=== PATIENT | male | born 1945 | race Caucasian/White ===

== ENCOUNTER 2016-09-06 15:29 | Emergency (ER) | payer MEDICARE, BC ==
[~2016-09-06] VITALS: Ht 172.7 cm; Wt 81.8 kg
[~2016-09-06 15:29] MED LIST: ADVIL 200MG TA200 MG PO; BACTRIM DS 8001 TAB PO; DOXYCYCLINE 10100 MG PO; MVI; SAME; [UNRECOGNIZED DRUG - REMARK]
[2016-09-06 15:31] VITALS: TEMP 99
[2016-09-06 16:14] LABS: PH 6 (5-8); URINE BILIRUBIN Negative (NEGATIVE); URINE BLOOD 2+ (NEGATIVE); URINE GLUCOSE 1+ (NEGATIVE); URINE KETONE Trace (NEGATIVE); URINE UROBILINOGEN Negative (NEGATIVE)
[2016-09-06 16:20] LABS: URINE APPEARANCE Turbid; URINE COLOR Red
[2016-09-06 16:33] LABS: SQUAMOUS EPITHELIAL 0-2 /hpf; URINE BACTERIA Occasional /hpf; URINE RBC >50 /hpf
[2016-09-06] MEDS ORDERED: CIPRO 500MG TA500 MG PO (16:47)
[2016-09-06 17:09] VITALS: BP 162/83; PULSE 67
== END 2016-09-06 17:10 | disposition home or self-care (01) ==
LOC: COL.ER 15:29
PROVIDERS: Emergency Medicine
DX: N30.01 Acute cystitis with hematuria (principal)

== ENCOUNTER 2017-02-03 14:21 | Inpatient (IN) | payer MEDICARE, BC ==
[~2017-02-03] VITALS: Ht 175.3 cm; Wt 97.1 kg
[~2017-02-03 14:21] MED LIST changes: +CIPRO 500MG TA500 MG PO
[2017-02-03 15:21] LABS: BASO % 0.4 % (0.0-2.0); EOS # 0.3 (0.0-0.7); EOS % 6.1 % (0-4.0); GRAN # 3.4 (1.4-6.5); GRAN % 72.5 % (42.2-75.2); LYMPH # 0.6 (1.2-3.4); LYMPH % 12.4 % (20.0-51.0); MEAN CELL VOLUME 93 fl (80.0-100.0); MEAN CORPUSCULAR HGB CONC 33 g/dl (33.0-37.0); MEAN PLATELET VOLUME 11.6 fl (7.4-10.4); MONO # 0.4 (0.1-0.6); MONO % 8.2 % (1.7-9.3); PLATELET COUNT 138 K/mm3 (130-400); RED BLOOD COUNT 2.71 M/mm3 (4.20-5.60); WHITE BLOOD COUNT 4.7 K/mm3 (4.8-10.8)
[2017-02-03 15:22] LABS: HEMATOCRIT 25.3 % (42.0-52.0); HEMOGLOBIN 8.4 g/dl (13.5-18.0); MEAN CORPUSCULAR HEMOGLOBIN 31 pg (27.0-31.0)
[2017-02-03 15:30] LABS: ADJUSTED CALCIUM 8.5 mg/dL (8.4-10.2); ALBUMIN 3.5 gm/dL (3.5-5.0); BILIRUBIN,TOTAL 0.5 mg/dL (0.0-1.0); CALCIUM 8.1 mg/dL (8.4-10.2); POTASSIUM 3.9 mmol/L (3.4-5.0); TOTAL PROTEIN 6.2 gm/dL (6.4-8.2)
[2017-02-03 15:37] LABS: COLLECTION METHOD CLEAN CATCH
[2017-02-03 15:42] LABS: CREATININE, serum 5.59 mg/dL (0.66-1.25)
[2017-02-03 15:43] LABS: PH 6 (5-8); SQUAMOUS EPITHELIAL 0-2 /hpf; URINE APPEARANCE Clear; URINE BACTERIA None Seen /hpf; URINE BILIRUBIN Negative (NEGATIVE); URINE BLOOD Negative (NEGATIVE); URINE COLOR Straw; URINE GLUCOSE 1+ (NEGATIVE); URINE KETONE Negative (NEGATIVE); URINE LEUKOCYTE ESTERASE Negative (NEGATIVE); URINE PROTEIN(semi-quant) Negative (NEGATIVE); URINE RBC 0-2 /hpf; URINE UROBILINOGEN Negative (NEGATIVE)
[2017-02-03] MEDS ORDERED: SODIUM BICARBO650 MG PO (15:51)
[2017-02-03] MEDS ORDERED: CALAN120 MG PO (15:53)
[2017-02-03 17:33] VITALS: BP 164/77; PULSE 66; TEMP 98.2
[2017-02-03 20:01] LABS: PSA-TOTAL 1.63 ng/mL (0-4)
[2017-02-03 20:50] VITALS: BP 173/71; PULSE 77; TEMP 98.2
[2017-02-04 00:44] VITALS: BP 175/82; PULSE 80; TEMP 99
[2017-02-04 04:46] VITALS: BP 156/75; PULSE 74; TEMP 98
[2017-02-04 07:34] LABS: ALBUMIN 2.7 gm/dL (3.5-5.0); CALCIUM 7.6 mg/dL (8.4-10.2); PHOSPHOROUS 4.6 mg/dL (2.5-4.5); POTASSIUM 4.4 mmol/L (3.4-5.0)
[2017-02-04 07:40] LABS: CREATININE, serum 5.33 mg/dL (0.66-1.25)
[2017-02-04 08:02] VITALS: BP 157/75; PULSE 81; TEMP 99
[2017-02-04 11:35] VITALS: BP 155/69; PULSE 75; TEMP 98.6
[2017-02-04 15:27] VITALS: BP 163/73; PULSE 78; TEMP 99.1
[2017-02-04 20:48] VITALS: BP 161/73; PULSE 75; TEMP 97.8
[2017-02-05 00:56] VITALS: BP 155/73; PULSE 83; TEMP 97.8
[2017-02-05 04:15] VITALS: BP 167/76; PULSE 77; TEMP 98.2
[2017-02-05 07:59] LABS: BASO % 0.9 % (0.0-2.0); EOS # 0.3 (0.0-0.7); EOS % 9.3 % (0-4.0); GRAN # 1.9 (1.4-6.5); GRAN % 59.7 % (42.2-75.2); LYMPH # 0.7 (1.2-3.4); LYMPH % 20.2 % (20.0-51.0); MEAN CELL VOLUME 91 fl (80.0-100.0); MEAN CORPUSCULAR HGB CONC 34 g/dl (33.0-37.0); MEAN PLATELET VOLUME 11.3 fl (7.4-10.4); MONO # 0.3 (0.1-0.6); MONO % 9.6 % (1.7-9.3); PLATELET COUNT 117 K/mm3 (130-400); RED BLOOD COUNT 2.76 M/mm3 (4.20-5.60); WHITE BLOOD COUNT 3.2 K/mm3 (4.8-10.8)
[2017-02-05 08:00] LABS: HEMATOCRIT 25.1 % (42.0-52.0); HEMOGLOBIN 8.4 g/dl (13.5-18.0); MEAN CORPUSCULAR HEMOGLOBIN 30 pg (27.0-31.0)
[2017-02-05 08:15] LABS: ALBUMIN 2.6 gm/dL (3.5-5.0); CALCIUM 7.8 mg/dL (8.4-10.2); PHOSPHOROUS 4.5 mg/dL (2.5-4.5); POTASSIUM 4.6 mmol/L (3.4-5.0)
[2017-02-05 08:21] LABS: CREATININE, serum 5.24 mg/dL (0.66-1.25)
[2017-02-05 08:25] VITALS: BP 164/68; PULSE 83; TEMP 97.6
[2017-02-05] MEDS ORDERED: FLOMAX 0.40.4 MG/CAP PO (10:05)
== END 2017-02-05 15:32 | disposition home or self-care (01) | DRG 683 ==
LOC: COL.ER 14:21 → MEDICAL 16:21
PROVIDERS: Family Medicine; Internal Medicine; Internal Medicine Nephrology; Physician Assistant
DX: N17.9 Acute kidney failure, unspecified (principal); I12.0 Hypertensive chronic kidney disease with stage 5 chronic kidney disease or end stage renal disease; E87.2 Acidosis; N18.5 Chronic kidney disease, stage 5; N13.30 Unspecified hydronephrosis; D63.1 Anemia in chronic kidney disease; E87.5 Hyperkalemia; N40.1 Benign prostatic hyperplasia with lower urinary tract symptoms; R33.8 Other retention of urine; T46.1X1A Poisoning by calcium-channel blockers, accidental (unintentional), initial encounter; R31.0 Gross hematuria
CPT/HCPCS: 99223-AI; 99232-AI; 99239; G0103; J0881; J1644; J2916; J3480; J7030

== ENCOUNTER → 2017-03-19 | Outpatient (REF) ==
[~2017-03-19] MED LIST changes: +CALAN120 MG PO; +FLOMAX 0.40.4 MG/CAP PO; +SODIUM BICARBO650 MG PO
[2017-03-19 08:57] LABS: CALCIUM 8.9 mg/dL (8.4-10.2); POTASSIUM 4.9 mmol/L (3.4-5.0)
[2017-03-19 09:02] LABS: CREATININE, serum 4.03 mg/dL (0.66-1.25)
== END ==
LOC: ZMSC 08:34
PROVIDERS: Surgery
DX: Z01.89 Encounter for other specified special examinations (principal)

== ENCOUNTER 2017-03-29 13:26 | Emergency (ER) | payer MEDICARE, BC ==
[~2017-03-29] VITALS: Ht 175.3 cm; Wt 70.5 kg
[2017-03-29 13:30] VITALS: BP 139/63; TEMP 97.7
[2017-03-29] MEDS ORDERED: PROPECIA1 MG PO (13:37)
[2017-03-29] MEDS ORDERED: CEPHALEXIN500 M1 PO (15:47)
[2017-03-29 15:58] VITALS: PULSE 65
== END 2017-03-29 15:58 | disposition home or self-care (01) ==
LOC: COL.ER 13:26
DX: L03.114 Cellulitis of left upper limb (principal)

== ENCOUNTER → 2017-04-14 | Outpatient (CLI) | payer MEDICARE, BC ==
[~2017-04-14] MED LIST changes: +CEPHALEXIN500 M1 PO; +PROPECIA1 MG PO
[2017-04-14 16:50] LABS: CALCIUM 8.3 mg/dL (8.4-10.2); POTASSIUM 4.7 mmol/L (3.4-5.0)
[2017-04-14 17:05] LABS: CREATININE, serum 3.99 mg/dL (0.66-1.25)
== END ==
LOC: COL.LAB 14:41
PROVIDERS: Family Medicine
DX: N18.9 Chronic kidney disease, unspecified (principal)

== ENCOUNTER → 2017-06-25 | Outpatient (CLI) | payer MEDICARE, BC ==
[2017-06-25 16:36] LABS: POTASSIUM 5.1 mmol/L (3.4-5.0)
[2017-06-26 08:25] LABS: CREATININE, serum 4.11 mg/dL (0.66-1.25)
== END ==
LOC: COL.LAB 14:47
PROVIDERS: Family Medicine
DX: N18.5 Chronic kidney disease, stage 5 (principal); Z88.2 Allergy status to sulfonamides

== ENCOUNTER → 2017-08-27 | Outpatient (CLI) | payer MEDICARE, BC ==
[2017-08-27 18:00] LABS: CALCIUM 8.6 mg/dL (8.4-10.2); POTASSIUM 4.4 mmol/L (3.4-5.0)
[2017-08-27 18:31] LABS: PSA-TOTAL 0.82 ng/mL (0-4)
[2017-08-27 18:56] LABS: CREATININE, serum 4.02 mg/dL (0.66-1.25)
== END ==
LOC: COL.LAB 15:31
PROVIDERS: Family Medicine
DX: N18.9 Chronic kidney disease, unspecified (principal); Z87.438 Personal history of other diseases of male genital organs
CPT/HCPCS: G0103

== ENCOUNTER → 2017-10-23 | Outpatient (CLI) | payer MEDICARE, BC ==
[2017-10-23 18:03] LABS: ALBUMIN 3.5 gm/dL (3.5-5.0); CALCIUM 7.9 mg/dL (8.4-10.2); CREATININE, serum 3.67 mg/dL (0.66-1.25); PHOSPHOROUS 4.8 mg/dL (2.5-4.5); POTASSIUM 4.3 mmol/L (3.4-5.0)
== END ==
LOC: COL.LAB 17:05
PROVIDERS: Internal Medicine Nephrology
DX: N17.8 Other acute kidney failure (principal)

== ENCOUNTER → 2018-06-15 | Outpatient (CLI) | payer MEDICARE, BC ==
[2018-06-15 16:50] LABS: ALBUMIN 3.9 gm/dL (3.5-5.0); CREATININE, serum 3.35 (0.66-1.25); PHOSPHOROUS 4.3 mg/dL (2.5-4.5); POTASSIUM 5.4 mmol/L (3.4-5.0)
== END ==
LOC: ZCOL.LAB 16:22
PROVIDERS: Family Medicine
DX: N18.9 Chronic kidney disease, unspecified (principal)

== ENCOUNTER → 2018-11-09 | Outpatient (CLI) | payer MEDICARE, BC ==
[2018-11-09 16:45] LABS: CALCIUM 8.7 mg/dL (8.4-10.2); CREATININE, serum 2.74 (0.66-1.25); POTASSIUM 4.7 mmol/L (3.4-5.0)
== END ==
LOC: ZCOL.LAB 15:56
PROVIDERS: Family Medicine
DX: N18.9 Chronic kidney disease, unspecified (principal)

== ENCOUNTER → 2020-12-04 | Day surgery (SDC) | payer MEDICARE, BC ==
[~2020-12-04] MED LIST changes: +ANTI-DIARRHEAL2 MG PO; +FERROUSAL325 MG PO; +TENORMIN 2525 MG/TAB PO
== END ==
LOC: SDCO 09:00
DX: Z20.822 Contact with and (suspected) exposure to COVID-19 (principal)

== ENCOUNTER 2021-01-15 08:01 | Day surgery (SDC) | payer MEDICARE, BC ==
[~2021-01-15] VITALS: Ht 170.2 cm; Wt 80.9 kg
[~2021-01-15 08:01] MED LIST changes: -ANTI-DIARRHEAL2 MG PO; -FERROUSAL325 MG PO; -TENORMIN 2525 MG/TAB PO
--- NOTE | 2021-01-15 08:10 | NUR ---
Patient ambulated back to [facility] #5 using a stick like cane. His gait is a little weak and unsteady. He states not being very active. Vitals obtained. Consent reviewed and signed. Patient verbalized understanding of procedure. Warm blanket provided and medication/hx reviewed. Call bronson is within reach. Patient is wearing eyeglasses. Will continue to monitor. SEE PHYSICAL ASSESSMENT.
[2021-01-15] MEDS ORDERED: TENORMIN 2525 MG/TAB PO (08:27)
[2021-01-15 08:41] VITALS: BP 152/77; PULSE 68; TEMP 97.3
[2021-01-15 10:30] VITALS: BP 142/71; PULSE 74; TEMP 97.6
--- NOTE | 2021-01-15 10:30 | NUR ---
1030- PATIENT BROUGHT BACK TO [facility] VIA CART. AMBULATED TO CHAIR WITH ASSIST. ALERT ORIENTED. PLACED ON MONITORS, VITAL SIGNS STABLE. IV INFUSING. DENIES PAIN OR NAUSEA. DOES NOT WISH TO EAT OR DRINK ANYTHING AT THE MOMENT. REPORT RECIEVED FROM RAJINDER ORTEGA. WARM BLANKET PROVIDED, CALL [facility] WITHIN REACH. WILL MONITOR 1045- PATIENT REQUESTS WATER AND MUFFIN AT THIS TIME. WOULD LIKE TO USE [facility] FOR RIDE HOME. VITAL SIGNS STABLE. AWAITING TO SPEAK WITH DR. HERNANDEZ AT THIS TIME. 1100- DR. HERNANDEZ IN ROOM TO DISCUSS FINDINGS WITH PATIENT. VITAL SIGNS STABLE. STATES HE FEELS READY TO GO HOME. 1120- NO EMOTIONAL DISTRESS NOTED AT THIS TIME. [facility] CALLED FOR CURTAIN STITCHER. IV REMOVED. PATIENT TO GET DRESSED AT THIS TIME. DISCHARGE INSTRUCTIONS REVIEWED. 1140- PATIENT BROUGHT DOWN TO LOBBY VIA WHEEL CHAIR. CRACKLING PRESS OPERATOR PULLED UP TO FRONT ENTRANCE. ALL BELONGINGS IN HAND.
[2021-01-15 10:45] VITALS: BP 149/69; PULSE 77
[2021-01-15 11:00] VITALS: BP 166/71; PULSE 76
== END 2021-01-15 11:40 | disposition home or self-care (01) ==
LOC: SDCO 08:01
DX: Z12.11 Encounter for screening for malignant neoplasm of colon (principal); D12.2 Benign neoplasm of ascending colon; D12.3 Benign neoplasm of transverse colon; D12.4 Benign neoplasm of descending colon; C20 Malignant neoplasm of rectum; I12.9 Hypertensive chronic kidney disease with stage 1 through stage 4 chronic kidney disease, or unspecified chronic kidney disease; K64.0 First degree hemorrhoids; I10 Essential (primary) hypertension; N18.9 Chronic kidney disease, unspecified; D69.6 Thrombocytopenia, unspecified; D64.9 Anemia, unspecified; Z79.899 Other long term (current) drug therapy; Z86.73 Personal history of transient ischemic attack (TIA), and cerebral infarction without residual deficits
CPT/HCPCS: J2704; J3010; J7030

== ENCOUNTER 2021-01-25 16:37 | Observation (INO) | payer MEDICARE, BC ==
[~2021-01-25] VITALS: Ht 172.7 cm; Wt 80.2 kg
[~2021-01-25 16:37] MED LIST changes: +TENORMIN 2525 MG/TAB PO
[2021-01-25 17:49] LABS: ALBUMIN 3.3 gm/dL (3.4-4.8); ALKALINE PHOSPHATASE 65 U/L (40-150); ANION GAP 13 mmol/L (7-16); AST,SGOT 13 U/L (5-34); BILIRUBIN,TOTAL 0.4 mg/dL (0.2-1.2); BLOOD UREA NITROGEN 64 mg/dL (8-26); CALCIUM 8.1 mg/dL (8.4-10.2); CHLORIDE 110 mmol/L (98-107); CREATINE KINASE 44 U/L (30-200); CREATININE, serum 3.63 mg/dL (0.72-1.25); GLUCOSE 108 mg/dL (70-99); POTASSIUM 4.4 mmol/L (3.5-4.5); SODIUM 134 mmol/L (136-145); TOTAL PROTEIN 6.2 gm/dL (6.2-8.1)
[2021-01-25 18:00] LABS: ALANINE AMINOTRANSFERASE < 6 U/L (0-55); CARBON DIOXIDE 11 mmol/L (23-31); TROPONIN-I < 0.010 ng/mL (0.00-0.033)
[2021-01-25 18:02] LABS: BASO % 0.4 % (0.0-2.0); EOS # 0.1 K/mm3 (0.0-0.7); EOS % 1.8 % (0-4.0); GRAN # 5.7 K/mm3 (1.4-6.5); GRAN % 76.7 % (42.2-75.2); LYMPH % 13.5 % (20.0-51.0); MEAN CELL VOLUME 76 fl (80.0-100.0); MEAN CORPUSCULAR HGB CONC 29 g/dl (33.0-37.0); MEAN PLATELET VOLUME 10.7 fl (7.4-10.4); MONO # 0.5 K/mm3 (0.1-0.6); MONO % 7.3 % (1.7-9.3); PLATELET COUNT 249 K/mm3 (130-400); REDCELL DISTRIBUTION WIDTH-CV 18.6 % (11.5-14.5)
[2021-01-25 18:07] LABS: HEMATOCRIT 20.5 % (42.0-52.0); HEMOGLOBIN 5.9 g/dl (13.5-18.0); MEAN CORPUSCULAR HEMOGLOBIN 22 pg (27.0-31.0)
[2021-01-25 21:11] VITALS: BP 137/58; PULSE 60; TEMP 98.6
[2021-01-25 23:32] VITALS: BP 148/69; PULSE 61; TEMP 97.9
[2021-01-26] VITALS (10 sets, daily range): BP systolic 128–153; BP diastolic 40–78; PULSE 60–72; TEMP 98.1–99.4
--- NOTE | 2021-01-26 01:01 | NUR ---
AT 0047 PT BEGAN BLOOD ADMINISTRATION, WHICH WAS AN EMERGENCY ADMINISTRATION AND BLOOD IS "UNCROSSMATCHED BLOOD". THIS NURSE REVIEWED WITH HOSPITALIST PRIOR TO ADMINISTRATION. HOSPITALIST CONFIRMS. THIS NURSE REVIEWED S.S TO REPORT. PT VERBALIZES UNDERSTANDING. ALL QUESTIONS/CONCERNS ANSWERED. CALL LIGHT WITHIN REACH.
--- NOTE | 2021-01-26 01:05 | NUR ---
AT 1999 PT ARRIVED TO MEDICAL FLOOR TO ROOM 354 BY WHEELCHAIR BY ED STAFF. PT A/OX4, VSS, 02 ROOM AIR SATURATIONS OVER 98 PERCENT. PT DENIES SOA,PAIN,N,V. PT REPORTS DIAHHREA FOR THE PAST COUPLE OF MONTHS AND CONTINUES WHILE HERE. PT REPORTS LITTLE TO NO APPETITE. ASSESMENT COMPLETE, MED REC COMPLETE, PT ORIENTED TO FLOOR AND HOSPITAL POLICY. PT VERBALIZES UNDERSTANDING. ALL QUESTIONS ANSWERED. ALL NEEDS MET AT THIS TIME. CALL LIGHT WITHIN REACH.
--- NOTE | 2021-01-26 03:21 | NUR ---
PT COMPLETED BLOOD TRANSFUSION AT ABOUT 0251 WITHOUT COMPLICATIONS. PT CONTINUES TO DENY S/S. ADMINISTRATION BAG PROPERLY DISCARDED AND PRECAUTIONS REMAINED IN PLACE.
[2021-01-26 04:05] LABS: BASO % 0.6 % (0.0-2.0); EOS # 0.2 K/mm3 (0.0-0.7); EOS % 2.9 % (0-4.0); GRAN # 3.2 K/mm3 (1.4-6.5); GRAN % 62.5 % (42.2-75.2); LYMPH # 1.1 K/mm3 (1.2-3.4); LYMPH % 22.1 % (20.0-51.0); MEAN CELL VOLUME 79 fl (80.0-100.0); MEAN CORPUSCULAR HGB CONC 29 g/dl (33.0-37.0); MEAN PLATELET VOLUME 10.8 fl (7.4-10.4); MONO # 0.6 K/mm3 (0.1-0.6); MONO % 11.7 % (1.7-9.3); PLATELET COUNT 248 K/mm3 (130-400); RED BLOOD COUNT 3.17 M/mm3 (4.20-5.60); REDCELL DISTRIBUTION WIDTH-CV 18.1 % (11.5-14.5)
[2021-01-26 04:22] LABS: CALCIUM 8.6 mg/dL (8.4-10.2); CREATININE, serum 3.65 mg/dL (0.72-1.25)
[2021-01-26 04:41] LABS: HEMATOCRIT 24.9 % (42.0-52.0); HEMOGLOBIN 7.3 g/dl (13.5-18.0); MEAN CORPUSCULAR HEMOGLOBIN 23 pg (27.0-31.0)
--- NOTE | 2021-01-26 06:36 | NUR ---
THIS NURSE CONTACTED NEPHROLOGY CONSULT AT THIS TIME; DR VILLEGAS CONFIRMS CONSULT.
--- NOTE | 2021-01-26 07:35 | NUR ---
THIS NURSE ATTEMPTED TO CALL DR. ALMAZAN AT 0736 TO PHONE FOR CONSULT; DID NOT ANSWER. THIS NURSE LEFT VOICEMAIL. THIS NURSE WILL RELAY TO ONCOMING SHIFT.
--- NOTE | 2021-01-26 12:40 | NUR ---
[employer] Department Supervisor visited with patient. Nothing else needed at this time.
--- NOTE | 2021-01-26 14:38 | NUR ---
SW met with patient to complete intake. Patient states that he lives alone in [facility]. Patient states that he uses a walking stick, is independent with ADL's, and does not utilize HH services. Patient states that he has a sister that is his point of contact Hoang Smith, PCP is Dr. Duran, pharmacy is [facility]. Patient states that he does not have a DPOA-HC and does not wish to appoint anyone at this time. Patient states that his plan is to go home, and has no concerns with doing so. SW will continue to follow. DC Plan: Home
[2021-01-26] MEDS ORDERED: ANTI-DIARRHEAL2 MG PO (16:59)
[2021-01-26] MEDS ORDERED: FERROUSAL325 MG PO (17:01)
--- NOTE | 2021-01-26 20:06 | NUR ---
Discharge paperwork reviewed with patient and given to patient. Removed IV and Tele box. Assisted patient to call [facility] service. PCT use wheelchair and assisted patient to ER entrace around 19:45 pm.
== END 2021-01-26 19:45 | disposition home or self-care (01) ==
LOC: COL.ER 16:37 → MEDICAL 18:09 → COL.ER 18:09 → MEDICAL 01-26 19:45
PROVIDERS: Emergency Medicine; Student in an Organized Health Care Education/Training Program; ADMIT Internal Medicine
DX: I12.9 Hypertensive chronic kidney disease with stage 1 through stage 4 chronic kidney disease, or unspecified chronic kidney disease (principal); N18.4 Chronic kidney disease, stage 4 (severe); D63.1 Anemia in chronic kidney disease; K62.5 Hemorrhage of anus and rectum; R19.7 Diarrhea, unspecified; R00.1 Bradycardia, unspecified; E87.2 Acidosis; C19 Malignant neoplasm of rectosigmoid junction; Z79.899 Other long term (current) drug therapy; Z95.828 Presence of other vascular implants and grafts
CPT/HCPCS: 99223-AI; 99239; G0008; G0378; J1756; P9016

== ENCOUNTER 2021-01-29 10:17 | Emergency (ER) | payer MEDICARE, BC ==
[~2021-01-29] VITALS: Ht 172.7 cm; Wt 81.8 kg
[~2021-01-29 10:17] MED LIST changes: +ANTI-DIARRHEAL2 MG PO; +FERROUSAL325 MG PO
[2021-01-29 10:29] VITALS: BP 173/64; TEMP 98.6
[2021-01-29 11:15] VITALS: PULSE 65
== END 2021-01-29 11:15 | disposition home or self-care (01) ==
LOC: COL.ER 10:17
DX: I80.8 Phlebitis and thrombophlebitis of other sites (principal); I10 Essential (primary) hypertension; Z79.899 Other long term (current) drug therapy

== ENCOUNTER 2021-03-22 11:42 | Day surgery (SDC) | payer MEDICARE, BC ==
[~2021-03-22] VITALS: Ht 172.7 cm; Wt 82.4 kg
[2021-03-22 12:44] VITALS: BP 167/69; PULSE 78; TEMP 98.9
[2021-03-22 13:03] LABS: CALCIUM 8.8 mg/dL (8.4-10.2); CREATININE, serum 3.43 mg/dL (0.72-1.25); POTASSIUM 4.4 mmol/L (3.5-4.5)
[2021-03-22] MEDS ORDERED: ISOPTIN SR180 M1 PO (15:08)
[2021-03-22] MEDS ORDERED: NORCO 325 MG-51 TAB PO (15:23)
[2021-03-22 16:33] VITALS: BP 111/50; PULSE 64; TEMP 97.2
--- NOTE | 2021-03-22 16:33 | NUR ---
Patient arrived from the OR after recieving moderate sedation. Patient is drowsy, but requested a sprite to drink and a warm muffin. Vitals obtained. Report obtained. Patient denies pain. Side rails x2. Call bronson is within reach at bedside.
[2021-03-22 16:48] VITALS: BP 126/57; PULSE 73
--- NOTE | 2021-03-22 16:48 | NUR ---
Patient is alert and oriented. Patient was assisted with sitting up in bed to enjoy is muffin and sprite. Vitals obatined. Patient denies neusea. Will continue to monitor per intervals.
[2021-03-22 17:03] VITALS: BP 133/63; PULSE 80
--- NOTE | 2021-03-22 17:03 | NUR ---
Patient's ride was called and stated they would be there shortly after 1700. The service is [employer]. Patient was assisted changing. IV was discontinued. Catheter tip intact. Pressure dressing applied. No swelling or redness noted. Discharge instructions were then reviewed, along with educational material. Patient verbalized understanding of material and signed the related paperwork. Patient was assisted into the wheelchair by SHANNON Mcwilliams. Patient has his personal belongings and the discharge information packet in his bag. Patient was transferred to the ED to wait for the [employer] ride.
--- NOTE | 2021-03-22 17:10 | NUR ---
[facility] bus left and did not call. They stated they would have to drive to [place] before returning to cigar packer and picker the patient. Patient stated he would like to contact [facility] transport. This service was contacted and they said they would be here soon. RN is waiting in the ED with the patient.
--- NOTE | 2021-03-22 17:35 | NUR ---
Patient was escorted out to the ED entrence by SHANNON Mcwilliams via wheelchair to the [facility]. He was assisted into the front seat, where he put his seat belt on. The patient was transferred into the care of the catshovel driver who will transport the patient home. Patient has his discharge instructions, educational material and personal belongings.
== END 2021-03-22 17:35 | disposition home or self-care (01) ==
LOC: SDCO 11:42
PROVIDERS: Registered Nurse
DX: C20 Malignant neoplasm of rectum (principal); D64.9 Anemia, unspecified; I10 Essential (primary) hypertension; E87.5 Hyperkalemia; M10.9 Gout, unspecified; Z85.038 Personal history of other malignant neoplasm of large intestine; Z79.899 Other long term (current) drug therapy
CPT/HCPCS: C1788; J0690; J1644; J2704; J3010; J7030

== ENCOUNTER 2021-04-06 22:30 | Emergency (ER) | payer MEDICARE, BC ==
[~2021-04-06] VITALS: Ht 175.3 cm; Wt 81.8 kg
[~2021-04-06 22:30] MED LIST changes: +ISOPTIN SR180 M1 PO; +NORCO 325 MG-51 TAB PO
[2021-04-06 22:38] VITALS: TEMP 98
[2021-04-06 23:44] LABS: EOS # 0.1 K/mm3 (0.0-0.7); GRAN # 3.1 K/mm3 (1.4-6.5); GRAN % 76.3 % (42.2-75.2); LYMPH # 0.8 K/mm3 (1.2-3.4); LYMPH % 20.6 % (20.0-51.0); MEAN CELL VOLUME 88 fl (80.0-100.0); MEAN CORPUSCULAR HGB CONC 32 g/dl (33.0-37.0); MEAN PLATELET VOLUME 9.9 fl (7.4-10.4); MONO % 0.8 % (1.7-9.3); PLATELET COUNT 192 K/mm3 (130-400); RED BLOOD COUNT 2.85 M/mm3 (4.20-5.60)
[2021-04-06 23:51] LABS: HEMATOCRIT 25.1 % (42.0-52.0); HEMOGLOBIN 8.1 g/dl (13.5-18.0); MEAN CORPUSCULAR HEMOGLOBIN 28 pg (27-31)
[2021-04-07 00:04] LABS: ALBUMIN 3.2 gm/dL (3.4-4.8); BILIRUBIN,TOTAL 0.3 mg/dL (0.2-1.2); CREATININE, serum 3.33 mg/dL (0.72-1.25); POTASSIUM 3.4 mmol/L (3.5-4.5); TOTAL PROTEIN 5.9 gm/dL (6.2-8.1)
[2021-04-07 00:34] LABS: COLLECTION METHOD CLEAN CATCH
[2021-04-07 00:39] LABS: MUCOUS Present (NOT PRESENT); PH 6 (5-8); SQUAMOUS EPITHELIAL None Seen /hpf (0-10); URINE APPEARANCE Clear (CLEAR/HAZY); URINE BACTERIA Rare /hpf (NONE SEEN); URINE BILIRUBIN Negative (NEGATIVE); URINE BLOOD Negative (NEGATIVE); URINE COLOR Straw (YELLOW); URINE GLUCOSE 1+ (NEGATIVE); URINE KETONE Negative (NEGATIVE); URINE LEUKOCYTE ESTERASE Negative (NEGATIVE); URINE NITRATE Negative (NEGATIVE); URINE PROTEIN(semi-quant) Negative (NEGATIVE); URINE RBC 0-2 /hpf (0-2); URINE UROBILINOGEN Negative (NEGATIVE)
[2021-04-07 01:16] VITALS: BP 114/78; PULSE 74
== END 2021-04-07 01:16 | disposition home or self-care (01) ==
LOC: COL.ER 22:30
PROVIDERS: Physician Assistant
DX: D63.1 Anemia in chronic kidney disease (principal); I12.0 Hypertensive chronic kidney disease with stage 5 chronic kidney disease or end stage renal disease; N18.5 Chronic kidney disease, stage 5; Z92.21 Personal history of antineoplastic chemotherapy; Z20.822 Contact with and (suspected) exposure to COVID-19; Z79.899 Other long term (current) drug therapy
CPT/HCPCS: J7030